=== PATIENT | female | born 1935 | race Two or more races ===

== ENCOUNTER 2018-10-17 20:39 | Emergency (ER) | payer OTHER ==
[~2018-10-17] VITALS: Ht 165.1 cm; Wt 70.3 kg
[2018-10-17] MEDS ORDERED: FOSAMAX70 MG (20:59)
[2018-10-17] MEDS ORDERED: SYNTHROID50 MCG (20:59)
[2018-10-17] MEDS ORDERED: D3 + K2 DOTS 11 EACH (21:00)
[2018-10-17] MEDS ORDERED: PROBIOTIC1 EAC3 (21:00)
[2018-10-17] MEDS ORDERED: FA-80.8 M1 (21:00)
[2018-10-17] MEDS ORDERED: ZOLOFT20 MG/1 ML (21:00)
[2018-10-17] MEDS ORDERED: NORVASC2.5 M1 (21:00)
[2018-10-17] MEDS ORDERED: NEURONTIN300 MG (21:01)
[2018-10-17] MEDS ORDERED: PHOS-NAK PACKE1 EACH (21:01)
[2018-10-17] MEDS ORDERED: QUESTRAN LIGHT210 GM (21:01)
[2018-10-17] MEDS ORDERED: CRESTOR5 MG (21:01)
[2018-10-17] MEDS ORDERED: AVAPRO75 MG (21:02)
[2018-10-17] MEDS ORDERED: ZANTAC150 M3 (21:02)
== END 2018-10-17 22:09 | disposition home or self-care (01) ==
LOC: ER 20:39
DX: M75.51 Bursitis of right shoulder (principal)

== ENCOUNTER → 2020-12-08 | Outpatient (CLI) | payer OTHER ==
[~2020-12-08] MED LIST: AVAPRO75 MG; CRESTOR5 MG; D3 + K2 DOTS 11 EACH; FA-80.8 M1; FOSAMAX70 MG; NEURONTIN300 MG; NORVASC2.5 M1; PHOS-NAK PACKE1 EACH; PROBIOTIC1 EAC3; QUESTRAN LIGHT210 GM; SYNTHROID50 MCG; ZANTAC150 M3; ZOLOFT20 MG/1 ML
== END | disposition home or self-care (01) ==
LOC: PPH VACUNA 09:00
PROVIDERS: ATTEND Emergency Medicine Pediatric Emergency Medicine
DX: Z23 Encounter for immunization (principal)